=== PATIENT | female | born 1985 | race Caucasian/White ===

== ENCOUNTER 2019-01-08 20:33 | Emergency (ER) | payer OTHER ==
[~2019-01-08] VITALS: Ht 170.2 cm; Wt 52.3 kg
[2019-01-08 20:46] VITALS: BP 153/86; TEMP 100.1
[2019-01-08 22:20] VITALS: PULSE 70
== END 2019-01-08 22:20 | disposition home or self-care (01) ==
LOC: COL.ER 20:33
DX: S02.2XXA Fracture of nasal bones, initial encounter for closed fracture (principal); W22.8XXA Striking against or struck by other objects, initial encounter